=== PATIENT | female | born 1955 | race Caucasian/White ===

== ENCOUNTER 2019-10-16 21:29 | Emergency (ER) | payer BC ==
[2019-10-16] MEDS ORDERED: ONDANSETRON 4 MG/2 ML VIAL IVP STA (22:15)
[2019-10-16] MEDS ORDERED: diazePAM INJ 5 MG/ML SYRINGE IVP STA (22:15)
[2019-10-16] MEDS ORDERED: SODIUM CHLORIDE 0.9% 1,000 ML IV ONE (22:15)
[2019-10-16 22:38] LABS: BASOPHILS % (AUTO) 0.4 %; EOSINOPHILS % (AUTO) 0.3 %; HGB - HEMOGLOBIN 13.1 g/dL (12.0-16.0); LYMPHOCYTES # (AUTO) 0.6 10^3/uL (1.5-3.5); LYMPHOCYTES % (AUTO) 8.4 %; MEAN CORPUSCULAR HEMOGLOBIN 29.4 pg (27.0-31.0); MEAN CORPUSCULAR HGB CONC 33.6 g/dL (32.0-36.0); MEAN CORPUSCULAR VOLUME 87.4 fL (81.0-99.0); MEAN PLATELET VOLUME 10.6 fL (7.9-10.8); MONOCYTES # (AUTO) 0.1 10^3/uL (0.0-1.0); MONOCYTES % (AUTO) 1.9 %; NEUTROPHILS # (AUTO) 6.5 10^3/uL (1.5-6.6); NEUTROPHILS % (AUTO) 88.6 %; PLT - PLATELET COUNT 204 10^3/uL (130-450); RED BLOOD COUNT 4.46 10^6/uL (4.20-5.40); WHITE BLOOD COUNT 7.4 x10^3/uL (4.8-10.8)
[2019-10-16 22:52] LABS: ALBUMIN 4.2 g/dL (3.2-5.5); ALBUMIN/GLOBULIN RATIO 1.4 (1.0-2.2); BILIRUBIN,TOTAL 1.3 mg/dL (0.2-1.0); CALCIUM 8.5 mg/dL (8.5-10.3); CREATININE 0.7 mg/dL (0.4-1.0); TOTAL PROTEIN 7.1 g/dL (6.7-8.2)
--- NOTE | 2019-10-16 23:32 | CT Report ---
Reason: vertigo Procedure Date: 10/16/2019 Accession Number: [id number] / [id number] Procedure: CT - HEAD WO CPT Code: Final Report FULL RESULT: EXAM: CT HEAD EXAM DATE: 10/16/2019 10:43 PM. CLINICAL HISTORY: Vertigo. COMPARISON: None. TECHNIQUE: Multiaxial CT images were obtained from the foramen magnum to the vertex. Reformats: Sagittal and coronal. IV contrast: None. In accordance with CT protocol optimization, one or more of the following dose reduction techniques were utilized for this exam: automated exposure control, adjustment of mA and/or KV based on patient size, or use of iterative reconstructive technique. FINDINGS: Parenchyma: No intraparenchymal hemorrhage. No evidence of mass, midline shift, or CT findings of acute infarction. Pollack-white differentiation is distinct. Extraaxial Spaces: Normal for age. No subdural or epidural collections identified. Ventricles: Normal in size and position. Sinuses and Orbits: Imaged paranasal sinuses, orbits, and mastoids show no significant abnormality. Bones: No evidence of fracture or calvarial defect. Other: None. IMPRESSION: Negative noncontrast head CT. RADIA
[2019-10-17] MEDS ORDERED: MECLIZINE 12.5 MG TABLET PO STA (00:44)
[2019-10-17] MEDS ORDERED: diazePAM INJ 5 MG/ML SYRINGE IVP STA (02:54)
[2019-10-17] MEDS ORDERED: ONDANSETRON 4 MG/2 ML VIAL IVP STA (02:54)
[2019-10-17] MEDS ORDERED: SODIUM CHLORIDE 0.9% 1,000 ML IV ONE (02:54)
--- NOTE | 2019-10-17 03:20 | ED Physician Documentation ---
History of Present Illness - Stated complaint Stated Complaint: N/V/DIZZY - Chief complaint Chief Complaint: General - History obtained from History obtained from: Patient - Additonal information Additional information: PT comes to the emergency dept complaining of vertigo. She states it started when she got up last night to go to the bathroom, and has continued today. It is worse with positional change or turning her head. The pt has been nauseated and vomiting all day. PT denies any focal neurologic sx otherwise. No recent head injury. No tinnitis. No abd pain, CP, SOB. No recent illness. She states she has had this once before, and was dx with labyrinthitis, and that this feels very similar. No other complaints at this time. Review of Systems Ten Systems: 10 systems reviewed and negative Constitutional: reports: Reviewed and negative Eyes: reports: Reviewed and negative Ears: reports: Reviewed and negative Nose: reports: Reviewed and negative Throat: reports: Reviewed and negative Cardiac: reports: Reviewed and negative Respiratory: reports: Reviewed and negative GI: reports: Reviewed and negative : reports: Reviewed and negative Skin: reports: Reviewed and negative Musculoskeletal: reports: Reviewed and negative Neurologic: reports: Other (vertigo) Psychiatric: reports: Reviewed and negative Endocrine: reports: Reviewed and negative Immunocompromised: reports: Reviewed and negative PD PAST MEDICAL HISTORY - Past Medical History Past Medical History: Yes Other Past Medical History: Labrynthitis - Past Surgical History Past Surgical History: Yes /LIQUEFIED [employer]: section - Present Medications Home Medications: Ambulatory Orders Medication Instructions Recorded Confirmed Meclizine HCl 50 mg PO Q8H PRN 5 Days #30 tablet 10/17/19 Ondansetron Odt [Zofran Odt] 4 mg TL Q6H PRN #10 tablet 10/17/19 diazePAM [Valium] 5 - 10 mg PO TID PRN #15 tablet 10/17/19 - Allergies Allergies/Adverse Reactions: Allergies Allergy/AdvReac Type Severity Reaction Status Date / Time Sulfa (Sulfonamide Allergy Anaphylaxis Verified 10/16/19 21:34 Antibiotics) tramadol Allergy Dizziness Verified 10/16/19 21:34 - Social History Does the pt smoke?: No Smoking Status: Never smoker Does the pt drink ETOH?: No Does the pt have substance abuse?: No - Immunizations Immunizations are current?: Yes - POLST Patient has POLST: No PD ED PE NORMAL - Vitals Vital signs reviewed: Yes - General General: Alert and oriented X 3, No acute distress, Well developed/nourished - HEENT HEENT: Atraumatic, PERRL, EOMI (no nystagmus), Moist mucous membranes - Neck Neck: Supple, no meningeal sign - Cardiac Cardiac: RRR, No murmur, Strong equal pulses - Respiratory Respiratory: No respiratory distress, Clear bilaterally - Abdomen Abdomen: Soft, Non tender, Non distended - Derm Derm: Normal color, Warm and dry, No rash - Extremities Extremities: No deformity - Neuro Neuro: Alert and oriented X 3, 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, No motor deficit, No sensory deficit, Normal speech, Other (No ataxia, but when gotten up to stand, pt complains of severe dizziness, and is not able to balance well.) - Psych Psych: Normal mood, Normal affect Results - Vitals Vitals: Oxygen O2 Source Room air - Labs Labs: Laboratory Tests 10/16/19 10/16/19 22:30 22:30 WBC 7.4 RBC 4.46 Hgb 13.1 Hct 39.0 MCV 87.4 MCH 29.4 MCHC 33.6 RDW 13.0 Plt Count 204 MPV 10.6 Neut # (Auto) 6.5 Lymph # (Auto) 0.6 L [place] # (Auto) 0.1 Eos # (Auto) 0.0 Baso # (Auto) 0.0 Absolute Nucleated RBC 0.00 Nucleated RBC % 0.0 Sodium 138 Potassium 3.8 Chloride 106 Carbon Dioxide 25 Anion Gap 7.0 BUN 12 Creatinine 0.7 Estimated GFR (MDRD) 85 L Glucose 137 H Calcium 8.5 Total Bilirubin 1.3 H AST 23 ALT 22 Alkaline Phosphatase 53 Total Protein 7.1 Albumin 4.2 Globulin 2.9 Albumin/Globulin Ratio 1.4 Lipase 26 - Rads (name of study) head CT Radiology: Final report received, EMP read indepedently (negative), See rad report PD MEDICAL DECISION MAKING - ED course Complexity details: reviewed old records, reviewed results, re-evaluated patient, considered differential, d/w patient ED course: PT was worked up in the ED with labs and CT head, all of which were unremarkable. She was found to be in a normal sinus rhythm on the monitor for her entire stay in the ED. She was treated with IV Valium and Zofran, with resolution of her nausea, and temporary improvement of her vertigo. She was also given 2 liters of NS in the ED. Her vertigo seemed to be increasing again, and pt still did not feel confident to walk on her own, so she was given a dose of meclizine. Pt reported some improvement, though not complete, after this and the second liter of fluid. The pt did have some degree of constant vertigo, but this was much exacerbated by positional change or head movement. As such, I felt it was most consistent with a peripheral vertigo, whether labyrinthitis or calculi. I have d/w the pt that the sx will ultimately resolve on their own, though this may take some weeks. There is no evidence of a central etiology at this time. I will prescribe both meclizine and Valium for the pt, as well as antiemetics. WE have discussed home management of the sx, as well as the usual indications for return. Departure - Departure Disposition: 01 Home, Self Care Clinical Impression: Peripheral vertigo, unspecified Qualifiers: Laterality: unspecified laterality Qualified Code(s): H81.399 - Other peripheral vertigo, unspecified ear Condition: Stable Instructions: ED BPV Vertigo, ED Vertigo Unspecified Prescriptions: diazePAM [Valium] 5 - 10 mg PO TID PRN #15 tablet PRN Reason: Spasms Meclizine HCl 50 mg PO Q8H PRN 5 Days #30 tablet PRN Reason: Vertigo Ondansetron Odt [Zofran Odt] 4 mg TL Q6H PRN #10 tablet PRN Reason: Nausea / Vomiting Comments: Extensive work-up, including labs and CT scan of the head have been unremarkable for worrisome cause of your symptoms. Your symptoms are most consistent with a peripheral source of your vertigo, meaning outside of the brain. Please follow- up with your primary care physician in a week if your symptoms are not better. You should use the Meclizine and the Valium as needed for dizziness, and the Zofran as needed for nausea. Please be sure to drink plenty of fluids, but in very small amounts at a time until your stomach is feeling better. Discharge Date/Time: 10/17/19 03:39
[2019-10-17 03:39] VITALS: BP 102/70
== END 2019-10-17 03:39 | disposition home or self-care (01) ==
LOC: ED 21:29
DX: H81.399 Other peripheral vertigo, unspecified ear (principal)
CPT/HCPCS: 36415; 70450; 80053; 83690; 85025; 96361; 96374; 96376; 99283; 99284; A9270

== ENCOUNTER 2023-06-12 14:28 | Outpatient (CLI) | payer MEDICARE, BC ==
--- NOTE | 2023-06-12 19:12 | DEXA Report ---
PROCEDURE: Dexa Spine and/or Hip INDICATIONS: POST MENOPAUSAL TECHNIQUE: Dual energy x-ray absorptiometry (DXA) was performed on a [employer] System. Regions measur ed are the AP Spine, femoral neck, and if needed forearm. COMPARISON: None FINDINGS: Lumbar Spine: Bone Mineral Density 0.903 g/cm/cm,T score -2.3. Osteopenia. Left Femoral Neck: Bone Mineral Density 0.727 g/cm/cm, T score -2.2. Osteopenia. Left Hip: Bone Mineral Density 0.733 g/cm/cm,T score -2.2. Osteopenia (T score greater or equal to -1.0: NORMAL) (T score from -1.1 to -2.4: OSTEOPENIA) (T score less than or equal to -2.5 to: OSTEOPOROSIS) Impression: By WHO criteria, this patient has low bone density (osteopenia). Patients with diagnosis of osteoporosis or osteopenia should have regular bone mineral density assess ment. For those eligible for Medicare, routine testing is allowed once every 2 years. Testing frequ ency can be increased for patients who have rapidly progressing disease or for those who are receivin g medical therapy to restore bone mass. Reviewed by: Elizabet Rodriguez MD on 06/12/2023 7:11 PM PST Approved by: Elizabet Rodriguez MD on 06/12/2023 7:11 PM PST Station ID: [id number]
== END 2023-06-12 14:29 | disposition home or self-care (01) ==
LOC: DI 14:28
PROVIDERS: ATTEND Nurse Practitioner Family
DX: M85.89 Other specified disorders of bone density and structure, multiple sites (principal); Z78.0 Asymptomatic menopausal state

== ENCOUNTER 2023-06-12 14:58 | Outpatient (CLI) | payer MEDICARE, BC ==
--- NOTE | 2023-06-14 10:19 | Mammography Report ---
BILATERAL DIGITAL SCREENING MAMMOGRAM 3D/2D: 06/12/2023 CLINICAL: New baseline exam. Routine screening. No prior exams were available for comparison. Both breasts are heterogeneously dense, which may obscure small masses (category c / 51-75% glandular tissue). No significant masses, calcifications, or other findings are seen in either breast. IMPRESSION: NEGATIVE There is no mammographic evidence of malignancy. A 1 year screening mammogram is recommended. Based on the Tyrer Cuzick model (a risk assessment model) the patients lifetime risk is 12.6% and he r 10 year risk is 6.4%. According to the ACR, ACS, and NCCN guidelines, an annual breast MRI exam tash ng with mammogram is recommended if the patients lifetime risk is 20% or greater. This exam was interpreted at Station ID: [id number]. NOTE: For mammograms, a report in lay terms will be sent to the patient. Approximately 15% of breast malignancies will not be visualized mammographically. In the management of a palpable breast mass, a negative mammogram must not discourage biopsy of a clinically suspicious lesion. Electronically Signed By: Jessica Chavez M.D., PH.D eb/penrad:06/13/2023 21:47:01 letter sent: No_Letter ACR BI-RADS Category 1: Negative 3341F PARENCHYMAL PATTERN: (D) - The breast(s) demonstrate(s) heterogeneously dense fibroglandular parenchy ma. BI-RADS CATEGORY: (1) - 1 Mammogram [id number] 1 year screening LATERALITY: (B)
== END 2023-06-12 14:59 | disposition home or self-care (01) ==
LOC: DI 14:58
PROVIDERS: ATTEND Nurse Practitioner Family
DX: Z12.31 Encounter for screening mammogram for malignant neoplasm of breast (principal); R92.333 Mammographic heterogeneous density, bilateral breasts

== ENCOUNTER 2023-08-01 07:04 | Outpatient (CLI) | payer MEDICARE, BC ==
[2023-08-01 14:29] LABS: BASOPHILS % (AUTO) 0.4 %; EOSINOPHILS # (AUTO) 0.1 10^3/uL (0.0-0.7); EOSINOPHILS % (AUTO) 2.6 %; HCT - HEMATOCRIT 42.8 % (37.0-47.0); HGB - HEMOGLOBIN 13.4 g/dL (12.0-16.0); LYMPHOCYTES # (AUTO) 1.8 10^3/uL (1.5-3.5); LYMPHOCYTES % (AUTO) 34.1 %; MEAN CORPUSCULAR HEMOGLOBIN 29.2 pg (27.0-31.0); MEAN CORPUSCULAR HGB CONC 31.3 g/dL (32.0-36.0); MEAN CORPUSCULAR VOLUME 93.2 fL (81.0-99.0); MEAN PLATELET VOLUME 11.2 fL (7.9-10.8); MONOCYTES # (AUTO) 0.5 10^3/uL (0.0-1.0); MONOCYTES % (AUTO) 8.4 %; NEUTROPHILS # (AUTO) 2.9 10^3/uL (1.5-6.6); NEUTROPHILS % (AUTO) 54.3 %; PLT - PLATELET COUNT 247 10^3/uL (130-450); RED BLOOD COUNT 4.59 10^6/uL (4.20-5.40); WHITE BLOOD COUNT 5.4 x10^3/uL (4.8-10.8)
[2023-08-01 15:45] LABS: ALBUMIN 4.4 g/dL (3.2-5.5); ALBUMIN/GLOBULIN RATIO 1.7 (1.0-2.2); BILIRUBIN,TOTAL 1.1 mg/dL (0.2-1.0); CALCIUM 9.2 mg/dL (8.5-10.3); CREATININE 0.7 mg/dL (0.6-1.3); POTASSIUM 4.1 mmol/L (3.5-4.5)
--- NOTE | 2023-08-01 22:29 | XRAY Report ---
PROCEDURE: Finger(s) LT INDICATIONS: DISCOLORATION OF SKIN TECHNIQUE: AP hand, 2 views of the third finger(s) acquired. COMPARISON: None. FINDINGS: Bones: No fractures or dislocations. Mild osteoarthritic changes are noted throughout left hand and wrist joints. No gross bony erosive changes are seen. No suspicious bony lesions. Soft tissues: No suspicious soft tissue calcifications or masses. IMPRESSION: No acute bony abnormality. No gross soft tissue abnormalities. Reviewed by: Bernardino Lovell MD on 08/01/2023 10:28 PM PST Approved by: Bernardino Lovell MD on 08/01/2023 10:28 PM [facility] Station ID: [id number]
== END 2023-08-01 07:05 | disposition home or self-care (01) ==
LOC: DI.S 07:04
PROVIDERS: ATTEND Registered Nurse
DX: R23.8 Other skin changes (principal)
CPT/HCPCS: 36415; 80053; 85025